=== PATIENT | male | born 1945 | race Caucasian/White ===

== ENCOUNTER → 2017-11-04 | Outpatient (CLI) | payer OTHER ==
[~2017-11-04] MED LIST: IOPAMIDOL (ISOVUE-300) 100 ML BTL ONE
== END ==
LOC: CIMAGING 12:34
PROVIDERS: ATTEND Internal Medicine
DX: N21.0 Calculus in bladder (principal); N28.1 Cyst of kidney, acquired; K76.0 Fatty (change of) liver, not elsewhere classified; N40.1 Benign prostatic hyperplasia with lower urinary tract symptoms
CPT/HCPCS: 74178; Q9967

== ENCOUNTER → 2017-11-22 | Outpatient (CLI) | payer OTHER | LOC: CIMAGING 14:33 | PROVIDERS: ATTEND Urology | DX: N28.1 Cyst of kidney, acquired (principal); N21.0 Calculus in bladder | CPT/HCPCS: 76770-PO ==

== ENCOUNTER 2018-01-24 13:44 | Observation (INO) | payer OTHER ==
[2018-01-24] MEDS ORDERED: LR 1,000 ML IV ONE (14:08)
[2018-01-24] MEDS ORDERED: OPIUM/BELLADONNA ALKALO SUPP PR PRN (14:15)
[2018-01-24] MEDS ORDERED: ceFAZolin 3 GM in D5W 100 ML IV ONE (14:15)
--- NOTE | 2018-01-24 14:16 | PDHPUP ---
History & Physical Update H&P update statement: This history and physical update is based on an assessment of the patient which was completed after admission or registration (within 24 hours), but prior to the surgery/procedure. H&P update: H&P reviewed & patient examined, no change in patient's condition since H&P completed
[2018-01-24] MEDS ORDERED: ceFAZolin 2 GM/DEXTROSE 100 ML IV ONE (14:30)
--- NOTE | 2018-01-24 16:00 | PDANEPAE ---
ANE History of Present Illness TURP ANE Past Medical History - Cardiovascular History Hx Hypertension: Yes Hx Arrhythmias: No Hx Chest Pain: No Hx Coronary Artery / Peripheral Vascular Disease: No Hx CHF / Valvular Disease: No Hx Palpitations: No Cardiovascular History Comment: Dr Oneil monitors - Pulmonary History Hx COPD: No Hx Asthma/Reactive Airway Disease: No Hx Recent Upper Respiratory Infection: No Hx Oxygen in Use at Home: No Hx Sleep Apnea: No Sleep Apnea Screening Result - Last Documented: Positive Pulmonary History Comment: elijah triggers - Neurologic History Hx Cerebrovascular Accident: No Hx Seizures: No Hx Dementia: No - Endocrine History Hx Diabetes: Yes Endocrine History Comment: type 2- on metformin - Renal History Hx Renal Disorders: Yes Renal History Comment: hx of unable to urinate after surgery 20 yrs ago had to self cath - Liver History Hx Hepatic Disorders: No - Neurological & Psychiatric Hx Hx Neurological and Psychiatric Disorders: No - Cancer History Hx Cancer: No - Congenital Disorder History Hx Congenital Disorders: No - GI History Hx Gastrointestinal Disorders: No - Other Health History Other Health History: wears reading glasses - Chronic Pain History Chronic Pain: No - Surgical History Prior Surgeries: left knee surgery 20 yrs ago. mastectomy when he was very young ANE Review of Systems Review of systems is: negative Review of Systems: - Exercise capacity METS (RN): 4 METS ANE Patient History - Allergies Allergies/Adverse Reactions: No Known Allergies Allergy (Verified 01/21/18 11:39) - Home Medications Home medications: home medication list seen and reviewed Home Medications: Aspirin 81mg (*) 01/21/18 [Last Taken 01/17/18] Lisinopril 01/21/18 [Last Taken 01/23/18] Metformin HCl 01/21/18 [Last Taken 01/23/18] - NPO status NPO Since - Liquids (Date): 01/24/18 NPO Since - Liquids (Time): 12:15 NPO Since - Solids (Date): 01/23/18 NPO Since - Solids (Time): 07:00 - Anes Hx Hx Anesthesia Complications (with details): urinary retention - Smoking Hx Smoking Status: Former smoker - Family Anes Hx Family Anes Hx: none Family Hx Anesthesia Complications: none ANE Labs/Vital Signs - Labs Result Diagrams: 01/24/18 14:41 - Vital Signs Vital Signs: reviewed preoperatively; see RN documention for details Blood Pressure: 126/88 Heart Rate: 76 Respiratory Rate: 16 O2 Sat (%): 94 Height: 180.34 cm Weight: 95.254 kg ANE Physical Exam - Airway Neck exam: FROM Mallampati Score: Class 2 Mouth exam: normal dental/mouth exam - Pulmonary Pulmonary: no respiratory distress - Cardiovascular Cardiovascular: regular rate and rhythym - ASA Status ASA Status: II ANE Anesthesia Plan Anesthesia Plan: GA w LMA
[2018-01-24] MEDS ORDERED: MIDAZOLAM 2 MG/2 ML VIAL IVP ONE (16:01)
[2018-01-24] MEDS ORDERED: LIDOCAINE 2% JELLY 20 ML (UROJECT) ONE (16:01)
[2018-01-24] MEDS ORDERED: ONDANSETRON 4 MG/2 ML VIAL IVP PRN ×2 (16:07→17:12)
[2018-01-24] MEDS ORDERED: HYDROCODONE/APAP 5/325 TAB PO PRN ×2 (16:07→17:12)
[2018-01-24] MEDS ORDERED: HYDROmorphONE/DILAUDID 1 MG/ML INJ IVP PRN (16:07)
[2018-01-24] MEDS ORDERED: OPIUM/BELLADONNA ALKALO SUPP PR ONE (16:07)
[2018-01-24] MEDS ORDERED: D5W LR 1,000 ML IV SCH (16:15)
[2018-01-24] MEDS ORDERED: ONDANSETRON 4 MG/2 ML VIAL ONE (16:24)
[2018-01-24] MEDS ORDERED: LIDOCAINE 2% 100 MG/5 ML SYR ONE (16:24)
[2018-01-24] MEDS ORDERED: DEXAMETHASONE 4 MG/ML VIAL ONE (16:24)
[2018-01-24] MEDS ORDERED: fentaNYL 100 MCG/2 ML INJ ONE (16:25)
[2018-01-24] MEDS ORDERED: PROPOFOL 200 MG/20 ML VIAL ONE ×2 (16:26→16:34)
[2018-01-24] MEDS ORDERED: PHENYLEPHRINE HCL 100 MCG/ML SYR ONE (17:10)
[2018-01-24] MEDS ORDERED: fentaNYL 100 MCG/2 ML INJ IVP PRN (17:12)
[2018-01-24] MEDS ORDERED: HYDROmorphONE/DILAUDID 2 MG/ML INJ IVP PRN (17:12)
[2018-01-24] MEDS ORDERED: NALOXONE HCL 0.4 MG/ML INJ IVP PRN (17:12)
[2018-01-24] MEDS ORDERED: LABETALOL HCL 5 MG/ML 20 ML MDV IVP PRN (17:12)
[2018-01-24] MEDS ORDERED: PROMETHAZINE HCL 25 MG/ML INJ IVP PRN (17:12)
[2018-01-24] MEDS ORDERED: ACETAMINOPHEN 500 MG TAB PO PRN (17:12)
[2018-01-24] MEDS ORDERED: DEXAMETHASONE 4 MG/ML VIAL IVP PRN (17:12)
[2018-01-24] MEDS ORDERED: MEPERIDINE 25 MG/0.5 ML AMP IVP PRN (17:12)
[2018-01-24] MEDS ORDERED: oxyCODONE IR 5 MG TAB PO PRN (17:12)
--- NOTE | 2018-01-24 17:14 | POSTANESTH ---
Post Anesthetic Evaluation Cardiovascular Status: Normal, Stable, Similar to Pre-Op Cond Respiratory Status: Normal, Stable, Similar to Pre-op Cond. Level of Consciousness/Mental Status: Can Participate in Eval, Mildly Sleepy, Arousable Pain Control: Adequate, Prn Tx Ordered Nausea/Vomiting Control: Adequate, Prn Tx Ordered Complications Possibly Related to Anesthesia: None Noted
--- NOTE | 2018-01-24 18:56 | POSTOPPROG ---
Post Op Note Date of Operation: 01/24/18 Surgeon: Megha Godinez Anesthesia: GET(General Endotracheal) Pre-op Diagnosis: bladder stone, BPH Post-op Diagnosis: same Indication: bladder stone, BPH Procedure: cystolitholapaxy, TURP in salne Findings: large bladder stone >3cm Inf/Abcess present in the surg proc area at time of surgery?: No EBL: 100-500 Complications: none, pt tolerated procedure well Drains: Other (erazo) Specimen(s): stone and prostate chips
[2018-01-24] MEDS: SENNOSIDES/DOCUSATE SODIUM TAB PO SCH (21:31)
--- NOTE | 2018-01-24 22:46 | GOP ---
DATE OF OPERATION: 01/24/2018 SURGEON: Megha Godinez MD ANESTHESIA: General. PREOPERATIVE DIAGNOSIS: Bladder stone and benign prostatic hypertrophy. POSTOPERATIVE DIAGNOSIS: Bladder stone and benign prostatic hypertrophy. PROCEDURE PERFORMED: Cystoscopy, cystolitholapaxy, and transurethral resection of prostate in saline . FINDINGS: A large bladder stone greater than 3 cm and a large obstructing trilobar hypertrophied pro state. SPECIMENS: Stone and prostate chips. ESTIMATED BLOOD LOSS: 150 mL. INDICATIONS: The patient presented to my office with severe irritative lower urinary tract symptoms with hematuria. He had a CT scan that demonstrated a large bladder stone as well as a large prostate . I did a cystoscopy on him, and he had a very large bladder stone that was confirmed as well as tri lobar hypertrophy. He presented today for treatment of the stone in his prostate. The rationale, ri sks, and benefits were discussed in detail. The risks included bleeding, infection, pain, injury to the urethra or the bladder or the ureter, small risk of urethral stricture and bladder neck contractu re, and need for subsequent procedures. He understood these risks and agreed to proceed. DESCRIPTION OF PROCEDURE: The patient was taken back to the cystoscopy suite and placed on the cysto scopy table in the supine position. General anesthesia was induced without complication. Time-out p erformed and core measures satisfied including placement of Reji Hugger and SCDs and administration o f Ancef antibiotics. He was brought to the end of the table and placed in a dorsal lithotomy positio n. All pressure points padded. Genitalia draped and prepped in the standard surgical fashion with B etadine. A rigid cystoscope cannulated the urethral meatus and was advanced atraumatically into the bladder. There was no visual obturator for the CyberWand. Therefore, I placed a wire with visual gu idance into the bladder and then I removed the scope leaving the wire in place and then advanced the sheath for the nephroscope over the wire and into the bladder with return of urine. The wire was rem keri then the CyberWand was connected and advanced into the bladder, and the stone was broken into se veral fragments and dust and removed with the CyberWand. What remained was just small amounts of sto ne that were able to be Ellik'd out. There were only 2 pieces remained after Ellik-ing that would ne ed to be removed later in the procedure, so at this point, then I advanced the TURIs resectoscope she ath with the visual obturator into the bladder, and there were again 2 stones confirmed that had not been removed yet that were just fragments. The right and left ureteral orifices were identified and then resection of the prostate posterior aspect began at the 5 and 7 o'clock positions away from the ureteral orifice and back to just where I had . I then resected the intervening tissue in the posterior floor of the prostate and then resected the left lateral lobe and the right lateral lob e maintaining vision of the veru at all times with my scope so as to not violate the veru and hence n ot violate the external sphincter. His prostate was quite bloody during the procedure, and I did emma mccann to use cautery very liberally throughout to maintain hemostasis. At the end of the procedure, he w as wide open when sitting at the veru. The veru had not been violated, and the ureteral orifices wer e untouched with resection. Hemostasis was excellent, and at this point, I attempted to remove the 2 remaining stone fragments. One was with the scope and the loop and then the other stone would not c ome out through that resectoscope sheath. Then I removed the TURIs resectoscope sheath and then read vanced the cystoscope back into the bladder. I used a basket to grab the stone and then removed the stone together with the cystoscope and then I readvanced the cystoscope back in and then there were n o other stone fragments. No other TURP chips as I had removed the TURP chips with the reji Romero nd at this point, hemostasis is excellent. The scope was removed then a 24-Azeri 3-way Glover cathet er was placed without difficulty with return of very light pink urine, and continuous bladder irrigat ion was initiated. I did place lidocaine jelly into the urethra before placing the Glover and a jose adeola opium suppository at the end. CBI was initiated. The urine was clear, and I did manually irri gate with a Yumiko catheter, and again, all irrigant was clear. At this point the procedure was cons idered completed. He was awoken from anesthesia and transferred to PACU in good condition. COMPLICATIONS: None. The patient tolerated the procedure well. DRAINS: A Glover catheter. /[id number]/MODL
--- NOTE | 2018-01-25 00:21 | SOAPPROG ---
SOAP Progress Note Assessment/Plan: Assessment:s/p TURP, cystolitholapaxy Plan: Wean CBI. Ambulate. Home w erazo catheter once CBI off and urine remains clear. Home w erazo catheter, leg bag, overnight bag, teach erazo cares. Erazo removal next Wednesday01/31/2018. Hold ASA for 5 days postop. 01/25/18 00:18 Subjective: Doing well. Sonia diet. Has not ambulated. No pain. Objective: Vital Signs Temp Pulse Resp BP Pulse Ox 36.5 C 61 16 112/76 94 01/24/18 23:25 01/24/18 23:25 01/24/18 23:25 01/24/18 23:25 01/24/18 23:25 Laboratory Results 01/24/18 14:41 01/23/18 01/24/18 01/25/18 05:59 05:59 05:59 Intake Total 1150 Balance 1150 Gen NAD, A*O CV regular Lungs Normal effort Abd soft Ext warm erazo in place, urine clear, CBI moderate gtt - Pending Discharge Pending Discharge Within 24 Hours: Yes Pending Discharge Within 48 Hours: Yes Pending Discharge Date: 01/26/18 Pending Discharge Time: 11:00 ICD10 Worksheet Patient Problems: Problems Problem Status Onset BPH loc w urin obs/LUTS Acute - ICD10 Problem Qualifiers (1) BPH loc w urin obs/LUTS
[2018-01-25] MEDS: ceFAZolin 2 GM/DEXTROSE 100 ML IV SCH ×2 (00:24→08:05)
[2018-01-25] MEDS ORDERED: ceFAZolin 2 GM in NS 50 ML IV SCH (01:30)
[2018-01-25 07:18] VITALS: BP 105/68
[2018-01-25] MEDS: SENNOSIDES/DOCUSATE SODIUM TAB PO SCH (08:12)
[2018-01-25] MEDS ORDERED: LISINOPRIL 10 MG TAB PO SCH (09:00)
[2018-01-25] MEDS ORDERED: metFORMIN SR 500 MG TAB PO SCH (09:00)
--- NOTE | 2018-01-25 09:04 | ASMTLACE ---
[facility] Comorbidities - select Answers: Diabetes (uncontrolled or all that apply controlled) Other Notes: HTN; # of Emergency department Answers: 0 visits in the last 6 months Score: 2 Date Signed: 01/25/2018 09:04 AM Electronically Signed By:Meme Woody RN
--- NOTE | 2018-01-25 09:04 | ASDISCHSUM ---
Discharge Information Plan Status:Home with No Needs Medically Cleared to Leave:01/24/2018 Discharge Date:01/24/2018 CM D/C Disposition:Home, Routine, Self-Care ADT D/C Disposition:Home, Routine, Self-Care Projected Discharge Date:01/24/2018 Transportation at D/C: Discharge Delay Reason: Follow-Up Date:01/24/2018 Discharge Slot: Final Diagnosis: Placement Information Patient Contact Information Contact Name:FLORENTINO Relationship:Daniel Address: Work Phone: City: [facility] Phone: State/Zip Code: Email: Financial Information Financial Class:Medicare Primary Plan Desc:MEDICARE OUTPATIENT Primary Plan Number:[id number] Secondary Plan Desc:[employer] Secondary Plan Number:[id number] Assessment Information Intervention Information
--- NOTE | 2018-01-25 09:07 | ASMTCMCOM ---
CM Note CM Note Notes: Chart reviewed for discharge needs. Patient s/p turp and stone breakup. He is to go home with a erazo and f/u in office on Wednesday, No needs identified at this time. CM available should needs arise. Plan: Dc to home independent. Date Signed: 01/25/2018 09:06 AM Electronically Signed By:Meme Woody RN
== END 2018-01-25 12:43 | disposition home or self-care (01) ==
LOC: FSGY 13:44 → F1N 16:07
PROVIDERS: ADMIT Urology; ATTEND Urology
DX: N40.1 Benign prostatic hyperplasia with lower urinary tract symptoms (principal); N21.0 Calculus in bladder; N39.498 Other specified urinary incontinence; E11.9 Type 2 diabetes mellitus without complications
CPT/HCPCS: 52318; 52601; C1758; C1769; J0690; J1100; J2001; J2250; J2370; J2405; J2704; J3010; 82365-90